=== PATIENT | female | born 1995 | race Caucasian/White ===

== ENCOUNTER 2016-07-03 17:13 | Emergency (ER) | payer BC ==
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
--- NOTE | 2016-07-03 18:02 | RAD ---
INDICATION: Injury to left side of face COMPARISON: None TECHNIQUE: Axial source images were acquired from the vertex of the mandible through the orbits. Coronal and sagittal reconstructed images were acquired. FINDINGS: Bones: There is no acute facial bone fracture. Orbits: The globes and intraconal structures appear intact. The optic nerves are symmetric. Extraocular muscles appear normal. There is no intraconal inflammatory change or retrobulbar mass.. Paranasal sinuses: The paranasal sinuses are clear. Brain: There are no acute abnormalities of the visualized brain parenchyma. Soft tissues: Normal Other: None The visualized soft tissue elements about the neck appear normal. IMPRESSION: NO ACUTE FACIAL BONE FRACTURE.
[2016-07-03 18:10] VITALS: BP 111/62
== END 2016-07-03 18:10 | disposition home or self-care (01) ==
LOC: ED 17:13
DX: S09.93XA Unspecified injury of face, initial encounter (principal); W50.0XXA Accidental hit or strike by another person, initial encounter; Y93.9 Activity, unspecified; Y92.9 Unspecified place or not applicable
CPT/HCPCS: 70486; 99282